=== PATIENT | female | born 1970 | race Caucasian/White ===

== ENCOUNTER 2023-04-09 15:21 | Emergency (ER) | payer BC, SELFPAY ==
[2023-04-09 15:23] VITALS: BP 108/84; PULSE 75; RESP 16; TEMP 36.7; O2SAT 99; BMI 24.8
--- NOTE | 2023-04-09 15:38 | EX.ED.VISEXT ---
HPI History of Present Illness Chief Complaint: Bite Informant: patient Narrative Narrative: Patient presents with dog bite with skin tearing to her right hand area. Patient broke up a fight between her 2 dogs. She accidentally got bit. No concern of rabies. No numbness tingling weakness or loss of function. Her tetanus is due to be updated September 2023 so we will do that here. She is right-hand dominant. No other complaints. Only medicine that may have any effect on immune system would be Plaquenil. She also takes Mobic and gabapentin. She has an allergy to penicillin where she gets hives. But she states she has had amoxicillin with no problems before. ROS ROS ED Constitutional Constitutional ED: Denies chills or fever(s) Cardiovascular Cardiovascular: Denies palpitations Respiratory/Chest Respiratory/Chest: Denies dyspnea Gastrointestinal Gastrointestinal: Denies nausea or vomiting Musculoskeletal Musculoskeletal: Reports other Details: See history of present illness. Integumentary Reports other Details: See history of present illness Neurologic Neurologic: Denies paresthesias or weakness Hematologic/Lymphatic Hematologic/Lymphatic: Denies easy bleeding, easy bruising or lymphadenopathy [facility] Medical History (Updated 04/09/23 @ 16:[address] Castillo Granados MD) Sjogren syndrome with central nervous system involvement Home Medications amoxicillin 875 mg-potassium clavulanate 125 mg tablet 1 tab PO BID #20 tabs 04/09/23 [Rx Last Taken Unknown] Allergy/AdvReac Type Severity Reaction Status Date / Time Penicillins Allergy Intermediate Hives Verified 04/09/23 15:23 erythromycin base AdvReac Mild Upset Verified 04/09/23 15:23 Stomach Social History Smoking Status: Never smoker EXAM Physical Exam Narrative Exam Narrative: Patient likely no acute distress sitting comfortably in the room. HEENT shows no trauma Cardiorespiratory shows easy unlabored breathing normal saturation 99% on room air and normal heart rate. Extremities do show injury to her right hand/wrist area. On the dorsal area there is a 6 mm small tear on the dorsum overlying the proximal second metacarpal. This does not open up and does not need suturing even if it was not a dog bite. Proximal to this there is a area of just abraded tissue but not lacerated at all. On the volar surface at the proximal aspect of the thenar eminence on the right there is a 2 cm laceration that does open up when she stretches her wrist. No active bleeding. No visible tendon or muscle. Range of motion of the thumb including opposition is totally normal. Sensation is totally normal. No sign of neurovascular or tendinous injury. Const Vital Signs: 04/09/23 15:23 Temperature 98.1 F Temperature Source Temporal Pulse Rate 75 Respiratory Rate 16 Blood Pressure 108/84 H Blood Pressure Mean 92 Pulse Ox 99 Oxygen Delivery Method Room Air MDM MDM MDM Narrative Medical decision making narrative: I talked with the patient about some options. I explained that we normally do not suture wounds on the hand. But this wound does gape open and will be very slow to heal. We discussed placing a single stitch in the middle just to barely bring the skin together. This would allow drainage on each side but still allow sooner healing. We understand that there is some balance of closure and infection and we feel this is the best balance. I will get her on antibiotics. Procedure: Suture laceration: The area was cleansed and draped. It was anesthetized with 1.5 cc of 1.0% lidocaine without epinephrine locally. Good anesthesia was achieved. It was copiously scrubbed with Shur-Clens and then irrigated significantly with 100 cc of saline. No foreign material was seen or felt. I then placed a single 4-0 Ethilon suture in the middle of this. This brought the edges together but still allow drainage from both sides. She tolerated it well. We discussed care reasons for follow-up and suture removal in about 10 days. Again, she has allergy to penicillin but has taken amoxicillin with no problems so we will start her on Augmentin. Discharge Plan Triage Chief Complaint: Bite ED Provider: Castillo Granados Dx/Rx/DC Orders Clinical Impression: Sutured skin wound, Dog bite of right hand, Laceration of hand, right Instructions: ED Dog Bite Prescriptions: New amoxicillin-pot clavulanate 875-125 mg tablet 1 tab PO BID Qty: 20 0RF Primary Care Provider: CECY OLSON Referrals: Natalie Thakkar MD [Med Staff - Infrastructure Architect] - 10 Day for suture removal NOT,DEFINED [Non-Staff] - Activity Restrictions/Additional Instructions: Follow-up with your doctor, Dr. Thakkar, or urgent care for suture removal. Disposition Disposition: Home, Self Care
[2023-04-09] MEDS: Diphth,Pertuss(Acell),Tet Vac 0.5 ML Vial IM (15:48)
[2023-04-09] MEDS: Lidocaine 1% (20 ml mdv) 20 ML Vial INFILT (15:48)
[2023-04-09] MEDS: Amox/Clavulanate 875 MG Tablet PO (16:24)
[2023-04-09 16:30] VITALS: BP 125/67; PULSE 68; RESP 18; O2SAT 100
== END 2023-04-09 16:53 | disposition home or self-care (01) ==
PROVIDERS: Emergency Provider Emergency Medicine; Visit Provider Emergency Medicine
DX: S61.411A Laceration without foreign body of right hand, initial encounter (principal); M35.07 Sjogren syndrome with central nervous system involvement; S61.451A Open bite of right hand, initial encounter; W54.0XXA Bitten by dog, initial encounter; Z79.899 Other long term (current) drug therapy; Y93.K9 Activity, other involving animal care; Z23 Encounter for immunization
CPT/HCPCS: 12001; 90471; 90715; 99284